=== PATIENT | male | born 1990 | race Caucasian/White ===

== ENCOUNTER 2017-12-23 18:34 | Emergency (ER) | payer OTHER ==
[2017-12-23] MEDS ORDERED: HYDROcodone/ACETAMIN 5-325 MG* 1 TAB PO ONE (19:33)
--- NOTE | 2017-12-23 19:44 | ED ---
Upper Extremity Pain - HPI Summary HPI Summary: Complains of shooting nail thru first phalanx of left second digit and residential into first phalanx of third digit with nail gun today.. Nail still present. Tetanus up-to-date, received 2013 - History of Current Complaint Chief Complaint: EDGeneral Stated Complaint: NAIL IN FINGER Time Seen by Provider: 12/23/17 19:13 Hx Obtained From: Patient Mechanism Of Injury: Penetrating Trauma Severity Initially: Moderate Severity Currently: Moderate Pain Location: Finger Aggravating Factor(s): Movement - Allergies/Home Medications Allergies/Adverse Reactions: Allergies Allergy/AdvReac Type Severity Reaction Status Date / Time Penicillins Allergy Rash Verified 12/23/17 18:41 PMH/Surg Hx/FS Hx/Imm Hx Previously Healthy: Yes Endocrine/Hematology History: Denies: Hx Anticoagulant Therapy, Hx Blood Disorders, Hx Diabetes - Immunization History Date of Tetanus Vaccine: 2013 Infectious Disease History: No Infectious Disease History: Denies: Traveled Outside the [place] in Last 30 Days - Social History Occupation: Employed Full-time Alcohol Use: Rare Substance Use Type: Reports: None Smoking Status (MU): Never Smoked Tobacco Review of Systems Constitutional: Negative Eyes: Negative ENT: Negative Cardiovascular: Negative Respiratory: Negative Gastrointestinal: Negative Genitourinary: Negative Positive: Other Skin: Negative Neurological: Negative Psychological: Normal All Other Systems Reviewed And Are Negative: Yes Physical Exam - Summary Physical Exam Summary: Three-inch nail extending through the proximal phalange of second digit of left hand, and appears to have penetrated proximal phalanx of third digit, but is currently no longer penetrating third digit. Admits to sensation distally in second and third digits of left hand. Flexion and extension appear intact. Cap refill present. Limited range of motion of second digit. Triage Information Reviewed: Yes Vital Signs On Initial Exam: Initial Vitals Temp Pulse Resp BP Pulse Ox 98.5 F 83 18 137/98 99 12/23/17 18:36 12/23/17 18:36 12/23/17 18:36 12/23/17 18:36 12/23/17 18:36 Vital Signs Reviewed: Yes Appearance: Positive: Well-Appearing Skin: Positive: Warm Head/Face: Positive: Normal Head/Face Inspection Eyes: Positive: Normal Neck: Positive: Supple Respiratory/Lung Sounds: Positive: Clear to Auscultation Cardiovascular: Positive: Normal Abdomen Description: Positive: Nontender Musculoskeletal: Positive: Normal Neurological: Positive: Normal Psychiatric: Positive: Normal AVPU Assessment: Alert - [place] Coma Scale Best Eye Response: 4 - Spontaneous Best Motor Response: 6 - Obeys Commands Best Verbal Response: 5 - Oriented Coma Scale Total: 15 Diagnostics - Vital Signs Vital Signs Temp Pulse Resp BP Pulse Ox 12/23/17 18:36 98.5 F 83 18 137/98 99 - Laboratory Lab Statement: Any lab studies that have been ordered have been reviewed, and results considered in the medical decision making process. - Radiology lwft 2nd finger Xray Interpretation: No Acute Changes Radiology Interpretation Completed By: Radiologist - no bony involvement left 3rd finger Xray Interpretation: No Acute Changes - no bony involvement Radiology Interpretation Completed By: Radiologist Course/Dx - Course Course Of Treatment: Complains of shooting nail thru first phalanx of left second digit and residential into first phalanx of third digit with nail gun today.. Nail still present.Three-inch nail extending through the proximal phalange of second digit of left hand, and appears to have penetrated proximal phalanx of third digit, but is currently no longer penetrating third digit. Admits to sensation distally in second and third digits of left hand. Flexion and extension appear intact. Cap refill present. Limited range of motion of second digit. Dr. Lynch orthopedics surgeon performed a digital block on patient index finger and removed nail. Patient will follow-up with Dr. Lynch Thursday of next week. Rx for Bactrim by mouth - Diagnoses Provider Diagnoses: Foreign body finger Discharge - Sign-Out/Discharge Documenting (check all that apply): Discharge/Admit/Transfer - Discharge Plan Condition: Stable Disposition: HOME Prescriptions: Sulfamethox/Trimethoprim DS* [Bactrim DS 800/160 TAB*] 1 tab PO BID 10 Days #20 tab Patient Education Materials: Soft Tissue Foreign Body (ED) Forms: *Work Release Referrals: No Primary Care Phys,NOPCP [Primary Care Provider] - Jose Martin Lynch MD [Medical Doctor] - Additional Instructions: Take antibiotics as directed. Move finger to keep it from getting stiff. Follow-up with orthopedics Dr. Lynch for appt on Friday 12/29. Return to the ED for any new or worsening symptoms - Billing Disposition and Condition Condition: STABLE Disposition: Home
--- NOTE | 2017-12-23 20:05 | RAD ---
Indication: Left index finger foreign body. 3 views of left index finger demonstrates the tip of the forearm body to be in the volar soft tissue at the level of the proximal phalanx. No definite fracture is noted. IMPRESSION: Nail appears to be through the volar soft tissues without fracture.
--- NOTE | 2017-12-23 20:06 | RAD ---
INDICATION: Foreign body through index finger. 3 views of left index finger demonstrates soft tissue through the volar aspect of the index finger. No bony involvement is definitively identified. IMPRESSION: Foreign body appears to be in the volar soft tissues of the index finger.
[2017-12-23] MEDS ORDERED: Bupivacaine 0.25% SDV* 30 ML INJ ONE (21:02)
[2017-12-23] MEDS ORDERED: Sulfamethox/Trimethoprim DS 800/160* TAB PO ONE (21:30)
[2017-12-23 21:44] VITALS: BP 118/72
--- NOTE | 2017-12-24 04:18 | CONS ---
CONSULTATION REPORT: DATE OF CONSULT: 12/23/17 - EMERGENCY DEPT. CHIEF COMPLAINT: Left index and middle fingers nail bed injuries with retained nail. HISTORY OF PRESENT ILLNESS: Kulwinder is 27. He is working in construction. Earlier today, they were building a deck, a nail gun shot a nail, a framing nail , through his palmar soft tissue of the index finger from radial to ulnar and into the middle finger. The nail has come out of the middle finger leaving the puncture wound; it is [id number] on the palmar aspect of the index finger. He does not feel a lot of numbness or tingling. It is appropriately stiff with a retained nail in place. PAST MEDICAL HISTORY: Negative. PAST SURGICAL HISTORY: Negative. MEDICATIONS: No home medications. ALLERGIES: PENICILLIN, which causes a rash. SOCIAL HISTORY: He is not a smoker. He is employed part time flexible clerk. He reports rare alcohol use. REVIEW OF SYSTEMS: Negative except for issues with the left index finger and middle finger. Otherwise, full review of systems was conducted and is negative. PHYSICAL EXAM: General: Awake and alert, very pleasant. Skin: There is a puncture wound in the middle finger. There is a thorough and thorough wound in the index finger. Musculoskeletal: The left index finger sits flexed to the PIP joint. It actively flexes to the DIP joint and extends. Light touch sensation on the distal aspect of the fingertip on both the radial and ulnar aspect is present as well as radial aspect of the middle finger, maybe a bit tingly on the ulnar aspect of the index finger, but he definitely feels it. The fingers are warm and well perfused. DIAGNOSTIC STUDIES/LAB DATA: X-rays were reviewed. The nail is seen. I do not appreciate any fracture. IMPRESSION: Retained nail in the left index finger. The tip of the nail did puncture into the middle finger. It does not appear as though the nerve is injured. I do not see any fractures. Certainly, we cannot fully rule out a digital nerve injury to the index finger. The tendons do appear to be intact. PLAN/RECOMMENDATIONS: I went ahead and removed the nail under digital block anesthesia. After I removed the nail, he had full flexion and extension in the finger. Neurological exam could not be obtained due to the finger being anesthetized. I told him there is a risk of infection. We irrigated out the puncture wound. It probably did have some communication with the flexor tendon sheath, so I suppose there is a small chance that he could develop a flexor tenosynovitis. I am going to send him out on prophylactic cephalexin. I will make sure his tetanus is updated. I will check him early next week to examine his neurological status and make sure there are no signs of any infection. PROCEDURE: Informed verbal consent was obtained and the left index finger and middle finger were cleansed with alcohol. A digital block was performed with 0.25% plain Marcaine. After waiting for 10 to 15 minutes for the finger to get completely numb, I went ahead and removed the nail uneventfully by pulling it back out of the index finger. The nail came out cleanly. There were no retained fragments. After I removed the nail, he can flex and extend the finger fully. We irrigated out the tract with an Angiocath using saline, Betadine solution. The finger was dressed. He tolerated this very well. [id number]/CPS #: [id number] MTDD
== END 2017-12-23 21:44 | disposition home or self-care (01) ==
LOC: ED 18:34
DX: S61.241A Puncture wound with foreign body of left index finger without damage to nail, initial encounter (principal); W29.4XXA Contact with nail gun, initial encounter; Y93.9 Activity, unspecified; Y92.9 Unspecified place or not applicable; Z88.0 Allergy status to penicillin
CPT/HCPCS: 73140; 99283; A9270-GY

== ENCOUNTER 2019-05-01 20:38 | Inpatient (IN) | payer MEDICAID, OTHER ==
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
[2019-05-01 21:18] LABS: Urine Appearance Clear; Urine Color Yellow; Urine Ketones Negative (Negative); Urine Protein Negative (Negative); Urine Urobilinogen Negative (Negative)
[2019-05-01 21:18] LABS: ABS Basophils 0.1 10^3/ul (0-0.2); ABS Eosinophils 0.1 10^3/ul (0-0.6); ABS Lymphocytes 2.5 10^3/ul (1.0-4.8); ABS Monocytes 0.7 10^3/ul (0-0.8); ABS Neutrophils 7.4 10^3/ul (1.5-7.7); Eosinophil % 0.6 %; Hematocrit 51 % (42-52); Hemoglobin 17.2 g/dL (14.0-18.0); Mean Corpuscular HGB Conc 34 g/dL (31-36); Mean Corpuscular Hemoglobin 30 pg (27-31); Mean Corpuscular Volume 88 fL (80-94); Nucleated Red Blood Cells % 0.1; Platelet Count 228 10^3/uL (150-450); Red Blood Count 5.77 10^6 /uL (4.18-5.48); Red Cell Distribution Width 14 % (10-15); White Blood Count 10.7 10^3/uL (3.5-10.8)
[2019-05-01 21:19] LABS: Urine Bilirubin Negative (Negative); Urine Blood Negative (Negative); Urine Glucose Negative (Negative); Urine Nitrite Negative (Negative)
[2019-05-01 21:21] LABS: Urine Bacteria Absent (Absent); Urine Red Blood Cell Absent (Absent); Urine Squamous Epithelial Cell Present (Absent); Urine White Blood Cell Absent (Absent)
[2019-05-01 21:31] LABS: Urine Benzodiazepine Screen None Detected (None Detect); Urine Opiates Screen None Detected (None Detect)
[2019-05-01 21:33] LABS: ALT 33 U/L (7-52); Albumin 4.5 g/dL (3.2-5.2); Albumin/Globulin Ratio 1.4 (1-3); Alkaline Phosphatase 73 U/L (34-104); BUN/Creatinine Ratio 9.8 (8-20); Blood Urea Nitrogen 10 mg/dL (6-24); CO2 Carbon Dioxide 21 mmol/L (22-32); Calcium 9.6 mg/dL (8.6-10.3); Chloride 109 mmol/L (101-111); EGFR African American 106.8 (>60); EGFR Non-African American 88.3 (>60); Globulin 3.2 g/dL (2-4); Glucose 89 mg/dL (70-100); Sodium 137 mmol/L (135-145); Total Protein 7.7 g/dL (6.4-8.9)
[2019-05-01 21:55] LABS: Acetaminophen < 15 mcg/mL; Alcohol < 10 mg/dL (<10); Salicylate < 2.50 mg/dL (<30)
[2019-05-01 22:11] LABS: TSH (Thyroid Stimulating Horm) 2.18 mcIU/mL (0.34-5.60)
[2019-05-01 22:49] LABS: AST 25 U/L (13-39); Anion Gap 7 mmol/L (2-11); Potassium 4.3 mmol/L (3.5-5.0)
[2019-05-02] MEDS ORDERED: diPHENhydraMINE PO* 50 MG ONE (01:44)
[2019-05-02] MEDS ORDERED: DIPHENHYDRAMINE 50 MG PO (02:31)
[2019-05-02] MEDS ORDERED: Acetaminophen TAB* 325 MG PO PRN (02:31)
[2019-05-02] MEDS ORDERED: Al Hydrox/Mg Hydrox/Simet LIQ* 30 ML UDC PO PRN (02:31)
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
[2019-05-02] MEDS: Vitamin THERAPEUTIC TAB PO SCH (11:36)
[2019-05-03] MEDS: Vitamin THERAPEUTIC TAB PO SCH (08:34)
--- NOTE | 2019-05-03 10:35 | PN ---
Subjective - Subjective Date of Service: 05/03/19 Service Type: 68140 Hosp care 35 min high complexity Subjective: CC: " I miss my children" Patient was seen and evaluated in the common room. He reported having decreased appetite and sleep. The patient did not report attending and participating in day groups. Per nursing no behavioral issues or overnight events reported. Patient is willing to take medications that will start tonight. Patient identifies how he feels sad and depressed because he is not allowed to be there to raise his children. He does speak with them over the phone. He described being close to his grandfather who taught him how to build things. Objective - General Observations Appearance: Disheveled Appears Stated Age: Yes Stature: WNL Posture: WNL Eye Contact: Average Behavior/Activity: Slowed - Interaction Observations Attitude Towards Examiner: Cooperative Stated Mood: Dysphoric Affect: Blunted Speech Pattern/Tone: Appropriate Thought Process: [place] Perception: WNL Thought Content: Self-Deprecatory Thought Process: Lethality: Passive Wish Hallucination Type: Denies Delusion Type: None - Cognitive Function Orientation: A&O x 4 Level of Consciousness: Awake - Medication Compliance Cooperative with Inpatient Medication Regimen: Yes - Group Participation Participates in Group Activities: No Assessment - Assessment Merits Inpatient Hospitalization: For Immediate Safety Clinical Impression: 28 year old male with a history of PTSD and Bipolar II came to the hospital by police and was admitted to the BSU at [facility] following expressing suicidal ideation. Plan - Plan Treatment Plan: Name: AFRICA BUCKLEY Birthdate: 1990 [id number] #Q15 minute observation. # The patient requires psychiatric inpatient admission at this time to assure safety, receive treatment and work toward stabilization. # EKG ordered for risk of QT prolongation of antipsychotic medication. # Obtain collateral information once release is signed. # Collaboration with Social Work # [place] ACT completed. # Effexor 150mg qhs for depression # Seroquel 200mg qhs for mood # Prazosin 1mg qhs for nightmares #Goals before discharge include: To eliminate/ reduce suicidal ideation Tentative Discharge: Pending psychiatric stabilization Sodium 137 mmol/L (135-145) 05/01/19 21:09 Potassium 4.3 mmol/L (3.5-5.0) 05/01/19 21:09 BUN 10 mg/dL (6-24) 05/01/19 21:09 Creatinine 1.02 mg/dL (0.67-1.17) 05/01/19 21:09 Calcium 9.6 mg/dL (8.6-10.3) 05/01/19 21:09 AST 25 U/L (13-39) 05/01/19 21:09 ALT 33 U/L (7-52) 05/01/19 21:09 Continued Medication Management: Continue Outpt Medication Medications: Current Medications Acetaminophen (Tylenol Tab*) 650 mg PO Q4H PRN PRN Reason: PAIN or TEMP > 101 F Al Hydrox/Mg Hydrox/Simethicone (Maalox Plus*) 30 ml PO Q4H PRN PRN Reason: INDIGESTION Diphenhydramine HCl (Benadryl Po*) 50 mg PO BEDTIME PRN PRN Reason: INSOMNIA Last Admin: 05/02/19 20:53 Dose: 50 mg Multivitamins (Theragran Tab*) 1 tab PO DAILY [facility] Last Admin: 05/03/19 08:34 Dose: Not Given Prazosin HCl (Minipress Cap*) 1 mg PO 2100 [facility] Quetiapine Fumarate (Seroquel Tab*) 200 mg PO BEDTIME [facility] Venlafaxine HCl (Effexor Xr Cap*) 150 mg PO 2100 [facility] - Discharge Plan Discharge Plan: Inpatient Hospitalization
[2019-05-03] MEDS: Famotidine TAB* 20 MG PO SCH (15:23)
--- NOTE | 2019-05-03 16:45 | CONS ---
CONSULTATION REPORT: DATE OF CONSULT: 05/03/19 REASON FOR CONSULT: Pain with eating. REQUESTING PROVIDER: Dr. Denney. HISTORY OF PRESENT ILLNESS: This is a 28-year-old male with a past medical history significant for depression, bipolar, PTSD, who was seen today for complaints of pain with eating, starting about a few months ago. The patient would get pain in the right upper quadrant and left lower quadrant every day after eating lunch or dinner. He describes the pain as up to an 8/10, throbbing pain, sometimes radiating to the right posterior flank. The pain was made worse with eating, nothing seemed to make it better. The pain would affect his appetite when it was present with regards to decreased appetite. Occasionally would report nausea after eating, which has progressively worsened over the past couple of months. He used to drink about 6-pack to a 2-L bottle of soda a day, though started cutting back about 5 months ago. He stated he is drinking more milk, water, and Douglas-Aid. PAST MEDICAL HISTORY: Includes depression, bipolar type 2, PTSD, suicide ideation, and blood clot in the brain following chickenpox as a child. PAST SURGICAL HISTORY: None. HOME MEDICATIONS: Include: 1. Quetiapine fumarate 200 mg p.o. daily. 2. Venlafaxine extended-release 225 mg p.o. daily. ALLERGIES: He has a drug allergy to PENICILLIN. FAMILY HISTORY: Includes grandmother who had a CVA and a triple bypass, uncle had a triple bypass and an [place]. Father has depression who has had a suicide attempt and ETOH abuse. SOCIAL HISTORY: Declines any tobacco, EtOH, or drug use. He lives in a hotel currently, works in construction. He is from his and has 3 children. REVIEW OF SYSTEMS: An 11-point system review was completed. It was positive for changes in poor appetite with pain. No fever. Occasional chest pain on the left lower intercostal area radiating to substernal, though nothing in to jaw, back, or arm. He states that pain comes with anxiety. Denies any coughing or shortness of breath. Nausea with eating and occasional vomiting. No problems with urination, states he has had in the past [id number] bright bloody bowel movements with straining. PHYSICAL EXAM: Vital Signs: 97.4 temp, 86 pulse, 16 resp, 99% oxygen on room air, and 121/82 blood pressure. Constitutional: This is a well-developed gentleman, seen sitting in the milieu, no acute distress noted. Eyes: Conjunctivae pink and moist. PERRLA. EOM intact. Lymphatics: No cervical lymphadenopathy noted. Cardiac: S1, S2. Heart rate regular. No murmurs, gallops, or rubs appreciated. No lower extremity edema. Respiratory: Lung sounds clear throughout bilaterally on room air. No accessory muscle use noted. Abdomen was distended and firm. Tender throughout right side and left lower quadrant. Hypoactive bowel sounds x4. Musculoskeletal: No clubbing or cyanosis noted. Able to move all extremities. Skin: No rashes or open areas appreciated. Neuro: No focal deficits. Moves all extremities. Sensation intact to light touch. Psych: Alert and oriented x3. No overt anxiety or depression localized. PERTINENT LABORATORY DATA: Red blood cell count on 05/01/19 was 5.77. No other pertinent data. ASSESSMENT: My impression is that this is a 28-year-old male with past medical history significant for bipolar, posttraumatic stress disorder, and depression who was admitted to the behavioral services unit on 04/21/19 for suicide ideation, and seen by myself on 05/03/19 for gastroesophageal reflux disease versus cholecystitis. PLAN: 1. Abdominal pain. I do not feel this is be due to infection due to lack of WBC and the prolonged nature of the course of illness. Abdomen did not yield any peritoneal pain. Perform gallbladder ultrasound to rule out cholelithiasis and start the patient on famotidine 20 mg daily. 2. Depression. Continue venlafaxine. 3. PTSD. Continue prazosin. 4. Bipolar. Continue quetiapine. 5. DVT prophylaxis. None needed. The patient is low risk. 6. Code status. Full code. Thank you for allowing us to participate in the plan of care for this patient. We will follow during the admission. [id number]/[facility] #: [id number] MARTIN
[2019-05-03] MEDS: QUEtiapine TAB* 100 MG PO SCH (20:47)
[2019-05-03] MEDS: Prazosin CAP* 1 MG PO SCH (20:47)
[2019-05-03] MEDS: Venlafaxine EXT RELEASE CAP* 75 MG PO SCH (20:47)
[2019-05-04 06:54] LABS: HDL Cholesterol 33.3 mg/dL
--- NOTE | 2019-05-04 11:35 | PN ---
Subjective - Subjective Date of Service: 05/04/19 Service Type: 39833 Hosp care 35 min high complexity Subjective: Nursing Report: Patient was visible on unit, no behavioral incidents. Slept overnight. He is attending group activities. CC: "Fine" Patient was seen and evaluated today. He reported improvement of sleep and mood. He reported having adequate appetite and sleep. The patient reports attending and participating in day groups. Per nursing no behavioral issues or overnight events reported. Patient reported that he is tolerating medications without side effects. Objective - General Observations Appearance: Disheveled Appears Stated Age: Yes Stature: WNL Posture: WNL Eye Contact: Average Behavior/Activity: WNL - Interaction Observations Attitude Towards Examiner: Cooperative Stated Mood: Dysphoric Affect: Blunted Speech Pattern/Tone: Clear Thought Process: Coherent Perception: WNL Thought Content: Self-Deprecatory Thought Process: Lethality: Passive Wish Hallucination Type: None Delusion Type: None - Cognitive Function Orientation: A&O x 4 Level of Consciousness: Awake - Medication Compliance Cooperative with Inpatient Medication Regimen: Yes - Group Participation Participates in Group Activities: Yes Assessment - Assessment Merits Inpatient Hospitalization: For Immediate Safety Clinical Impression: 28 year old male with a history of PTSD and Bipolar II came to the hospital by police and was admitted to the BSU at [facility] following expressing suicidal ideation. Plan - Plan Treatment Plan: Name: AFRICA BUCKLEY Birthdate: 1990 [id number] #Q30 minute observation with staff pass # The patient requires psychiatric inpatient admission at this time to assure safety, receive treatment and work toward stabilization. # EKG ordered for risk of QT prolongation of antipsychotic medication. # Obtain collateral information once release is signed. # Collaboration with Social Work # [place] ACT completed. # Effexor 150mg qhs for depression # Seroquel 200mg qhs for mood # Prazosin 1mg qhs for nightmares # Connect with follow up care services PTSD groups and [facility] services # Medical consult completed for abdominal pain and recommendations appreciated # Ultrasound abdomen completed - no significant findings with impression reading hepatosteatosis #Goals before discharge include: To eliminate/ reduce suicidal ideation Tentative Discharge: Pending psychiatric stabilization Sodium 137 mmol/L (135-145) 05/01/19 21:09 Potassium 4.3 mmol/L (3.5-5.0) 05/01/19 21:09 BUN 10 mg/dL (6-24) 05/01/19 21:09 Creatinine 1.02 mg/dL (0.67-1.17) 05/01/19 21:09 Calcium 9.6 mg/dL (8.6-10.3) 05/01/19 21:09 AST 25 U/L (13-39) 05/01/19 21:09 ALT 33 U/L (7-52) 05/01/19 21:09 Continued Medication Management: Continue Outpt Medication Medications: Current Medications Acetaminophen (Tylenol Tab*) 650 mg PO Q4H PRN PRN Reason: PAIN or TEMP > 101 F Al Hydrox/Mg Hydrox/Simethicone (Maalox Plus*) 30 ml PO Q4H PRN PRN Reason: INDIGESTION Diphenhydramine HCl (Benadryl Po*) 50 mg PO BEDTIME PRN PRN Reason: INSOMNIA Last Admin: 05/02/19 20:53 Dose: 50 mg Famotidine (Pepcid Tab*) 20 mg PO DAILY [facility] Last Admin: 05/03/19 15:23 Dose: 20 mg Multivitamins (Theragran Tab*) 1 tab PO DAILY [facility] Last Admin: 05/03/19 08:34 Dose: Not Given Prazosin HCl (Minipress Cap*) 1 mg PO 2100 [facility] Last Admin: 05/03/19 20:47 Dose: 1 mg Quetiapine Fumarate (Seroquel Tab*) 200 mg PO BEDTIME [facility] Last Admin: 05/03/19 20:47 Dose: 200 mg Venlafaxine HCl (Effexor Xr Cap*) 150 mg PO 2100 [facility] Last Admin: 05/03/19 20:47 Dose: 150 mg - Discharge Plan Discharge Plan: Inpatient Hospitalization
[2019-05-04] MEDS: Famotidine TAB* 20 MG PO SCH (12:25)
[2019-05-04] MEDS: Vitamin THERAPEUTIC TAB PO SCH (12:26)
--- NOTE | 2019-05-04 14:51 | PN ---
Hospitalist Progress Note Date of Service: 05/04/19 Consult yesterday for abdominal pain lasting months. GB US today shows hepatosteatosis, but no cholelithiasis. Would recommend continuing famotidine. If the patient does not have improvement after 2-3 weeks, he should follow up with his PCP to determine if further workup is warranted. Case was discussed with Dr. Denney. [facility] will sign off at this time. Thank you for this consultation.
[2019-05-04] MEDS: QUEtiapine TAB* 100 MG PO SCH (20:19)
[2019-05-04] MEDS: Venlafaxine EXT RELEASE CAP* 75 MG PO SCH (20:19)
[2019-05-04] MEDS: Prazosin CAP* 1 MG PO SCH (20:19)
[2019-05-05] MEDS: Vitamin THERAPEUTIC TAB PO SCH (12:14)
[2019-05-05] MEDS: Famotidine TAB* 20 MG PO SCH (12:14)
--- NOTE | 2019-05-05 12:15 | PN ---
Subjective - Subjective Date of Service: 05/05/19 Service Type: [id number] Hosp care 35 min high complexity Subjective: Nursing Report: Patient was visible on unit, no behavioral incidents. Slept overnight. CC: "Alright" Patient was seen and evaluated today. The patient reported sleeping better. He identified his mother and girlfriend as a source of support, however doesnt think they will come to visit him. He plans to stay at the motel until he can get his own apartment. He reported having adequate appetite and sleep. The patient reports attending some groups. Per nursing no behavioral issues or overnight events reported. Patient reported that he is tolerating medications without side effects. Objective - General Observations Appearance: Disheveled Appears Stated Age: Yes Stature: WNL Posture: WNL Eye Contact: Average Behavior/Activity: Slowed - Interaction Observations Attitude Towards Examiner: Cooperative Stated Mood: Dysphoric Affect: Blunted Speech Pattern/Tone: Quiet Volume Thought Process: [place] Perception: WNL Thought Content: Self-Deprecatory Thought Process: Lethality: Passive Wish Hallucination Type: None Delusion Type: None - Cognitive Function Orientation: A&O x 4 Level of Consciousness: Awake Cognition: WNL - Medication Compliance Cooperative with Inpatient Medication Regimen: Yes - Group Participation Participates in Group Activities: Partial Assessment - Assessment Merits Inpatient Hospitalization: For Immediate Safety Clinical Impression: 28 year old male with a history of PTSD and Bipolar II came to the hospital by police and was admitted to the BSU at [facility] following expressing suicidal ideation. Plan - Plan Treatment Plan: Name: AFRICA BUCKLEY Birthdate: 1990 [id number] #Q30 minute observation with staff pass with computer # The patient requires psychiatric inpatient admission at this time to assure safety, receive treatment and work toward stabilization. # EKG ordered for risk of QT prolongation of antipsychotic medication. # Obtain collateral information once release is signed. # Collaboration with Social Work # [place] ACT completed. # Effexor 150mg qhs for depression # Seroquel 200mg qhs for mood # Prazosin 1mg qhs for nightmares # Outpatient follow up at [facility] # Mothers contact information Sue [phone] # Patient unable to remember friends number # Support system include mother and girlfriend. #Goals before discharge include: To eliminate/ reduce suicidal ideation Tentative Discharge: Pending psychiatric stabilization Sodium 137 mmol/L (135-145) 05/01/19 21:09 Potassium 4.3 mmol/L (3.5-5.0) 05/01/19 21:09 BUN 10 mg/dL (6-24) 05/01/19 21:09 Creatinine 1.02 mg/dL (0.67-1.17) 05/01/19 21:09 Calcium 9.6 mg/dL (8.6-10.3) 05/01/19 21:09 AST 25 U/L (13-39) 05/01/19 21:09 ALT 33 U/L (7-52) 05/01/19 21:09 Continued Medication Management: Continue Outpt Medication Medications: Current Medications Acetaminophen (Tylenol Tab*) 650 mg PO Q4H PRN PRN Reason: PAIN or TEMP > 101 F Al Hydrox/Mg Hydrox/Simethicone (Maalox Plus*) 30 ml PO Q4H PRN PRN Reason: INDIGESTION Diphenhydramine HCl (Benadryl Po*) 50 mg PO BEDTIME PRN PRN Reason: INSOMNIA Last Admin: 05/02/19 20:53 Dose: 50 mg Famotidine (Pepcid Tab*) 20 mg PO DAILY [facility] Last Admin: 05/05/19 12:14 Dose: 20 mg Multivitamins (Theragran Tab*) 1 tab PO DAILY [facility] Last Admin: 05/05/19 12:14 Dose: Not Given Prazosin HCl (Minipress Cap*) 1 mg PO 2100 [facility] Last Admin: 05/04/19 20:19 Dose: 1 mg Quetiapine Fumarate (Seroquel Tab*) 200 mg PO BEDTIME [facility] Last Admin: 05/04/19 20:19 Dose: 200 mg Venlafaxine HCl (Effexor Xr Cap*) 150 mg PO 2100 [facility] Last Admin: 05/04/19 20:19 Dose: 150 mg - Discharge Plan Discharge Plan: Inpatient Hospitalization Outpatient Program: [facility]
[2019-05-05] MEDS: Prazosin CAP* 1 MG PO SCH (20:22)
[2019-05-05] MEDS: QUEtiapine TAB* 100 MG PO SCH (20:22)
[2019-05-05] MEDS: Venlafaxine EXT RELEASE CAP* 75 MG PO SCH (20:22)
[2019-05-06] MEDS: Famotidine TAB* 20 MG PO SCH (08:27)
[2019-05-06] MEDS: Vitamin THERAPEUTIC TAB PO SCH (10:07)
--- NOTE | 2019-05-06 10:29 | PN ---
Subjective - Subjective Date of Service: 05/06/19 Service Type: 59642 Hosp care 35 min high complexity Subjective: Nursing Report: Patient was visible on unit, no behavioral incidents. Slept overnight. He is attending some group activities. CC: "Alright" Patient was seen and evaluated in the common room. The patient reported he is unsure how much longer he is going to live in the hotel supported by DSS. because he plans to eventually move closer to home. He reported having adequate appetite and sleep. The patient reports attending in day groups. Per nursing patient was watching movie in comfort room last evening. Patient reported that he is tolerating medications without side effects. He is in agreement with taking a injection. Objective - General Observations Appearance: Disheveled Appears Stated Age: Yes Stature: WNL Posture: Slumped Eye Contact: Average - Interaction Observations Attitude Towards Examiner: Cooperative Stated Mood: Dysphoric Affect: Blunted Speech Pattern/Tone: Clear Thought Process: Coherent - Cognitive Function Orientation: A&O x 4 Level of Consciousness: Awake - Medication Compliance Cooperative with Inpatient Medication Regimen: Yes - Group Participation Participates in Group Activities: Partial Assessment - Assessment Merits Inpatient Hospitalization: For Immediate Safety Clinical Impression: 28 year old male with a history of PTSD and Bipolar II came to the hospital by police and was admitted to the BSU at [facility] following expressing suicidal ideation. Plan - Plan Treatment Plan: Name: AFRICA BUCKLEY Birthdate: 1990 [id number] #Q30 minute observation with staff pass with computer # The patient requires psychiatric inpatient admission at this time to assure safety, receive treatment and work toward stabilization. # EKG ordered for risk of QT prolongation of antipsychotic medication. # Obtain collateral information once release is signed. # Collaboration with Social Work # [email or web address] Safe ACT completed. # Effexor 150mg qhs for depression # Seroquel 50mg qhs for sleep #Abilify 5mg qhs # Prazosin 1mg qhs for nightmares # Outpatient follow up at [facility] # Mothers contact information Sue [phone] who suggested he live at a structured living program. She denied that he currently has access to firearms. # Long acting injection of Aristada 662mg plus Aristada Initio planed for Thursday after tolerance is established # [facility] Sheriff confirmed firearms have been confiscated # Safety plan discussed with patient # [place] housing and services # Support system include mother and girlfriend. #Goals before discharge include: To eliminate/ reduce suicidal ideation Tentative Discharge: Pending psychiatric stabilization Sodium 137 mmol/L (135-145) 05/01/19 21:09 Potassium 4.3 mmol/L (3.5-5.0) 05/01/19 21:09 BUN 10 mg/dL (6-24) 05/01/19 21:09 Creatinine 1.02 mg/dL (0.67-1.17) 05/01/19 21:09 Calcium 9.6 mg/dL (8.6-10.3) 05/01/19 21:09 AST 25 U/L (13-39) 05/01/19 21:09 ALT 33 U/L (7-52) 05/01/19 21:09 Continued Medication Management: Continue Outpt Medication Medications: Current Medications Acetaminophen (Tylenol Tab*) 650 mg PO Q4H PRN PRN Reason: PAIN or TEMP > 101 F Al Hydrox/Mg Hydrox/Simethicone (Maalox Plus*) 30 ml PO Q4H PRN PRN Reason: INDIGESTION Diphenhydramine HCl (Benadryl Po*) 50 mg PO BEDTIME PRN PRN Reason: INSOMNIA Last Admin: 05/02/19 20:53 Dose: 50 mg Famotidine (Pepcid Tab*) 20 mg PO DAILY [facility] Last Admin: 05/06/19 08:27 Dose: 20 mg Multivitamins (Theragran Tab*) 1 tab PO DAILY [facility] Last Admin: 05/06/19 10:07 Dose: Not Given Prazosin HCl (Minipress Cap*) 1 mg PO 2100 [facility] Last Admin: 05/05/19 20:22 Dose: 1 mg Quetiapine Fumarate (Seroquel Tab*) 200 mg PO BEDTIME [facility] Last Admin: 05/05/19 20:22 Dose: 200 mg Venlafaxine HCl (Effexor Xr Cap*) 150 mg PO 2100 [facility] Last Admin: 05/05/19 20:22 Dose: 150 mg - Discharge Plan Discharge Plan: Inpatient Hospitalization
[2019-05-06] MEDS: ARIPiprazole TAB* 5 MG PO SCH (20:33)
[2019-05-06] MEDS: Venlafaxine EXT RELEASE CAP* 75 MG PO SCH (20:33)
[2019-05-06] MEDS: QUEtiapine TAB* 25 MG PO SCH (20:34)
[2019-05-06] MEDS: Prazosin CAP* 1 MG PO SCH (20:34)
[2019-05-07] MEDS: Famotidine TAB* 20 MG PO SCH (15:41)
[2019-05-07] MEDS: Vitamin THERAPEUTIC TAB PO SCH (15:41)
[2019-05-07] MEDS: QUEtiapine TAB* 25 MG PO SCH (21:39)
[2019-05-07] MEDS: ARIPiprazole TAB* 5 MG PO SCH (21:40)
[2019-05-07] MEDS: Venlafaxine EXT RELEASE CAP* 75 MG PO SCH (21:40)
[2019-05-07] MEDS: Prazosin CAP* 1 MG PO SCH (21:41)
[2019-05-08] MEDS: Famotidine TAB* 20 MG PO SCH (12:24)
[2019-05-08] MEDS: Vitamin THERAPEUTIC TAB PO SCH (12:24)
[2019-05-08] MEDS: ARIPiprazole TAB* 5 MG PO SCH (20:43)
[2019-05-08] MEDS: QUEtiapine TAB* 25 MG PO SCH (20:43)
[2019-05-08] MEDS: Prazosin CAP* 1 MG PO SCH (20:45)
[2019-05-08] MEDS: Venlafaxine EXT RELEASE CAP* 75 MG PO SCH (20:45)
[2019-05-09] MEDS ORDERED: ARIPiprazole TAB* 15 MG PO ONE (08:45)
[2019-05-09] MEDS: Famotidine TAB* 20 MG PO SCH (08:45)
[2019-05-09] MEDS: Vitamin THERAPEUTIC TAB PO SCH (08:45)
[2019-05-09] MEDS ORDERED: Mirtazapine TAB* 15 MG PO PRN (10:13)
--- NOTE | 2019-05-09 16:16 | PN ---
Subjective - Subjective Date of Service: 05/09/19 Service Type: 72713 Hosp care 35 min high complexity Subjective: Patient reported feeling ready to be discharged tomorrow. He received the injection without complications. Objective - General Observations Appearance: Disheveled Stature: WNL Posture: WNL Eye Contact: Average Behavior/Activity: WNL - Interaction Observations Attitude Towards Examiner: Cooperative Stated Mood: Euthymic Affect: Blunted Speech Pattern/Tone: Clear Thought Process: Coherent Perception: WNL Thought Content: WNL Hallucination Type: None Delusion Type: None - Cognitive Function Orientation: A&O x 4 Level of Consciousness: Awake - Medication Compliance Cooperative with Inpatient Medication Regimen: Yes - Group Participation Participates in Group Activities: Partial Assessment - Assessment Merits Inpatient Hospitalization: For Immediate Safety Clinical Impression: 28 year old male with a history of PTSD and Bipolar II came to the hospital by police and was admitted to the BSU at [facility] following expressing suicidal ideation. Plan - Plan Treatment Plan: Name: AFRICA BUCKLEY Birthdate: 1990 [id number] #Q30 minute observation with staff pass with computer # The patient requires psychiatric inpatient admission at this time to assure safety, receive treatment and work toward stabilization. # EKG ordered for risk of QT prolongation of antipsychotic medication. # Obtain collateral information once release is signed. # Collaboration with Social Work # [place] ACT completed. # Effexor 150mg qhs for depression # Start remeron 7.5mg daily for sleep # Prazosin 1mg qhs for nightmares # Outpatient follow up at [facility] # Mothers contact information Sue [phone] who provided collateral. She denied that he currently has access to firearms. # Long acting injection of Aristada 662mg plus Aristada Initio received today without complications # [facility] Sheriff confirmed firearms have been confiscated # Safety plan discussed with patient # Support system include mother and girlfriend. #Goals before discharge include: To eliminate/ reduce suicidal ideation Tentative Discharge: Tomorrow Sodium 137 mmol/L (135-145) 05/01/19 21:09 Potassium 4.3 mmol/L (3.5-5.0) 05/01/19 21:09 BUN 10 mg/dL (6-24) 05/01/19 21:09 Creatinine 1.02 mg/dL (0.67-1.17) 05/01/19 21:09 Calcium 9.6 mg/dL (8.6-10.3) 05/01/19 21:09 AST 25 U/L (13-39) 05/01/19 21:09 ALT 33 U/L (7-52) 05/01/19 21:09 Continued Medication Management: Continue Outpt Medication Medications: Current Medications Acetaminophen (Tylenol Tab*) 650 mg PO Q4H PRN PRN Reason: PAIN or TEMP > 101 F Al Hydrox/Mg Hydrox/Simethicone (Maalox Plus*) 30 ml PO Q4H PRN PRN Reason: INDIGESTION Diphenhydramine HCl (Benadryl Po*) 50 mg PO BEDTIME PRN PRN Reason: INSOMNIA Last Admin: 05/02/19 20:53 Dose: 50 mg Famotidine (Pepcid Tab*) 20 mg PO DAILY [facility] Last Admin: 05/09/19 08:45 Dose: 20 mg Mirtazapine (Remeron Tab*) 7.5 mg PO BEDTIME PRN PRN Reason: SLEEP Multivitamins (Theragran Tab*) 1 tab PO DAILY [facility] Last Admin: 05/09/19 08:45 Dose: Not Given Prazosin HCl (Minipress Cap*) 1 mg PO 2100 [facility] Last Admin: 05/08/19 20:45 Dose: 1 mg Venlafaxine HCl (Effexor Xr Cap*) 150 mg PO 2100 [facility] Last Admin: 05/08/19 20:45 Dose: 150 mg - Discharge Plan Discharge Plan: Inpatient Hospitalization
[2019-05-09] MEDS: Prazosin CAP* 1 MG PO SCH (20:08)
[2019-05-09] MEDS: Venlafaxine EXT RELEASE CAP* 75 MG PO SCH (20:08)
[2019-05-10] MEDS: Famotidine TAB* 20 MG PO SCH (07:34)
[2019-05-10] MEDS: Vitamin THERAPEUTIC TAB PO SCH (07:36)
--- NOTE | 2019-05-10 08:44 | DS ---
Subjective - Subjective Service Types: 110[address] [facility] Day Mgmt complex over 30 min Discharge Date: 05/10/19 Subjective: CC: " I am better" Patient looks forward to seeing his grandparents and going fishing. The patient was seen and evaluated before discharge today. The patient reported having adequate appetite and fair sleep. The patient reported attending some groups. Per nursing no behavioral issues or overnight events reported. Patient reported tolerating medications without side effects. Justification for admission: Immediate Safety. CC " I want to end my life" The patient was brought to [facility] by police after he called 911 expressing suicidal ideation. He reported having bad thoughts and became upset when asked about those bad thoughts. He reported being mad a friend for taking away his AR-15 rifle and stealing his belongings. Patient reported that he stopped taking his medications about 2 weeks ago because he could not get to a pharmacy due to his car being inoperable. 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 He reported feeling nausea, and vomiting and brain shocks when he stopped taking the medication. During that time he was not sleeping for 3 days and was talking a lot. Patient has access to firearms. Patients stressors include not being able to see his children due to a protection order from his who is now from. He reported feeling sad because he is unable to see his children. He describes limited social and family support and identified his grandparents to be a source of support for him. MDD Reported feeling depressed and feeling empty inside with feelings of hopelessness , and worthlessness. Reported diminished appetite and sleep. Reported overwhelming feelings of guilt and decreased concentration. Bipolar Denied symptoms of maria elena such as having many ideas at once. Denied increased talkativeness where no one can interrupt. Denied feeling irritable most of the time while having an persistent abundance of energy most of the day without the use of energy drinks, stimulants, or recreational drug use. Denied an increase in intensity in goal directed activities. Denied having the decreased need to sleep for days , having prolonged elevated mood , or feeling on top of the world. Denied impulsive risky sexual encounters. Denied spending money recklessly , going on spending sprees wiping out savings. Denied impulsively traveling out of town or country, having super escobar, and unrealistic wealth or fame. Anxiety Denied having symptoms of anxiety such as having times where heart feels that it is beating out of chest , sweaty palms, or shallow breathing. Denied having uncomfortable or intrusive thoughts. Denied feeling restless, high strung, or worrying too much most of the time. Psychosis Does not endorse hearing things that other people do not hear or seeing things other people do not see. Denied feeling that TV is making references. Denied feeling that people are spying , following , or reading their thoughts. Phobias: Patient denied having excessive fear of a particular thing or situation. Eating disorders: Patient denied having excessive eating habits or feelings of guilt after eating. Denied repeated episodes of self induced vomiting after eating. PTSD Reported flashbacks, nightmares and avoidance of a prior traumatic events experienced during deployment in [place] and [place] . PAST PSYCHIATRIC HISTORY: Prior Diagnosis : Bipolar I disorder, PTSD History of past Psychiatric Hospitalizations: 1 prior psychiatric admission at [facility] and sent to [facility] for 1 week. History of past suicide/homicide attempts : 1 past suicide attempt by overdosing on pills Outpatient follow-up: None at this time Medications: Past trials of medications include effexor 225mg qhs, seroquel 200mg qhs. Guardianship: None. FAMILY HISTORY: - Suicide: Father made a suicide attempt - Mental illness: Father depression - Substance abuse: Father alcohol abuse SUBSTANCE ABUSE HISTORY: Denied using alcohol, tobacco, heroin cocaine or other illicit substances. Denied abusing pills for recreational use. Denied past Substance abuse treatment. SOCIAL HISTORY: - Denied a history of childhood physical and or sexual abuse Born in [facility] and raised by both parents. - Education: Completed high school No history of special education. - Living situation: Currently lives in [facility] in [place] found by DSS - Employment history: Works odd jobs in construction currently unemployed - Relationship: and has 3 children. - Legal history: Has been to senior living multiple times for violating a protection order from his - service history: Served in the [employer] unit and served 3 tours overseas where he witness and suicide. PAST MEDICAL HISTORY: Denied heart disease, diabetes, cancer and/ or other medical conditions. - Allergies: Denied drug or other allergies. Physical Exam: Please see ED note Mental Status Exam on Admission APPEARANCE : 28 year old male who appears stated age. Patient appears to have poor hygiene and grooming. BEHAVIOR: Uncooperative EYE CONTACT: Poor PSYCHOMOTOR ACTIVITY: No psychomotor agitation or retardation. MOVEMENTS: No abnormal movements observed. SPEECH : Normal rate, rhythm, volume and tone. MOOD : "Mad " AFFECT : Type irritable Range is restricted Mood Incongruent THOUGHT PROCESS: Poverty of content THOUGHT CONTENT: Paranoid delusions PERCEPTION: No current auditory or visual hallucinations. SUICIDALITY Current suicidal ideation HOMICIDALITY Denied homicidal ideation, intent or plan. Insight/judgment: Poor insight and judgment ORIENTATION: Oriented to self, location, and time. Diagnosis on Admission: Bipolar II disorder current depressive episode. PTSD. Diagnosis on Discharge: Bipolar II disorder with recent depressive episode . PTSD. Condition at the time of discharge: At the time of discharge patient showed improvement of sleep and appetite. The patient was not a danger to self or others. The patient denied suicidal ideation, intent or plan. The patient denied homicidal targets, ideation, intent or plan. This patient participated in psychosocial rehabilitation and gained some insight into problems. The patient gained insight into mental illness, triggers, and treatment. The patient took medication as prescribed. The patient denied side effects of medication and objective signs of side effects were not evident. Therapy Resources were offered to the patient. Patient was given a supply of prescriptions at the time of discharge. The patient plans to attend follow up care with the follow up arrangements that were discussed and put in place. Patient was asked to keep appointments as scheduled, take medication as prescribed, have routine follow up care with their primary care physician and refrain from any use of alcohol or drugs. Objective - General Observations Appearance: Disheveled Appears Stated Age: Yes Stature: WNL Posture: WNL Eye Contact: Average Behavior/Activity: WNL - Interaction Observations Attitude Towards Examiner: Cooperative Stated Mood: Euthymic Speech Pattern/Tone: Clear Thought Process: Coherent Perception: WNL Thought Content: WNL Hallucination Type: None Delusion Type: None - Cognitive Function Orientation: A&O x 4 Level of Consciousness: Awake - Medication Compliance Cooperative with Inpatient Medication Regimen: Yes - Group Participation Participates in Group Activities: Yes Treatment Course & Assessment Clinical Course & Impression: Hospital course part A: 28 year old male with a history of PTSD and Bipolar II came to the hospital by police and was admitted to the BSU at [facility] following expressing suicidal ideation. Hospital course part B: Labs ordered included CBC, CMP, UDS, TSH, HBA1c, TSH, Toxicology screen, Urine analysis, and lipid profile. Labs were reviewed and did not require the need for further evaluation. Vital signs were monitored during the course of admission. EKG ordered for risk of QT prolongation of antipsychotic medication and found to be within normal limits. The patient was admitted to the adult behavioral unit and placed on 15 minute check for safety. At a later time the patient was on Q30 minute observation and staff pass privileges. With those limits being extended, patient was safe on all checks and there were no occurrence of behavioral incidents. The patient did well on the unit and went to groups. Interacted with peers had adequate sleep and regular appetite. Tolerated medication changes without side effects. Group therapy and services were offered. The risks, benefits, and alternative treatment options were discussed as well as of the risks of refusing treatment. Treatment associated risks discussed. After this discussion made an acknowledgement of this understanding. Follow up care appointments were put in place. The importance of monitoring for metabolic changes was discussed and acknowledgement of this understanding was made. The patient was informed not to abruptly stop or start new medications before consulting with a medical professional. Improvements in patient from the time of admission include: Improved affect, sleep and decrease in anxiety. The patient expressed readiness for discharge home. The patient presents with a broader range of affect, and the absence of depressed mood, delusions, perceptual disturbance. The patient denied suicidal and or homicidal ideation intent or plan. Overall, the patient responded well to inpatient treatment as evidenced by their report of strengthening of coping mechanisms, reduced distress, and more positive outlook on circumstances. Of note there was an improvement of recognizing how emotional state can effect mood and behavior. Safety precautions were put in place which included involving the patient and their family to closely monitor for changes in mental state. In addition, implementing follow up care, screening for the need to remove/securing firearms , weapons and stockpile of medications. Patient/ family instructed to immediately call 911 and/ or go to nearest emergency room should any safety concerns arise. AIMS was performed and insignificant for involuntary movement disorders. The patient was advised of the 24 hour / 7 days a week availability of the emergency room and to call 911 in the event of an emergency such as being suicidal and/ or homicidal. The patient was informed of the contact information for [facility], Suicide Prevention and Crisis Services, National Suicide Prevention Lifeline, [facility], Alcoholics Anonymous, and [facility]. Medications started included Effexor 150mg qhs for depression, Seroquel 200mg qhs for mood and decreased to 50mg qhs then increased [id number] qhs , Prazosin 1mg qhs for nightmares. Patient was started on remeron and did not find it to help with sleep this was discontinued and seroquel was restarted at 100mg qhs for sleep. Patient was informed of risks of taking two anti-psychotics and plans to eventually taper down seroquel in outpatient setting. Long acting injection of Aristada 662mg plus Aristada Initio received on without complications next injection due 06/06/19. Patient plans to follow up with [facility] assistance in [facility]. Family was contacted before discharge. The family confirmed that the patient gets better with treatment and suggested a structured outpatient program, no partial hospitalization was attempted to be located and was not available. At this time both the patient is eager for discharge and are in agreement with the discharge plan set forth by the treatment team and can safely receive care in the less restrictive outpatient setting. They were advised on how the days following discharge can be a vulnerable period and to look out for warning signs associated with decompensation and progression of mental illness. They were notified of the resources available in the event these situations arise and confirmed that the patient has no access to firearms or stockpiles of medications. [facility] confirmed firearms have been confiscated. Patient was provided with 2 week supply at [facility]. Prior authorization was approved. Patient plans to contact crisis hotline or call 911 in the event of a crisis. Patient was not assaultive or a behavioral problem during the course of admission. The patient showed improvement of hygiene and was able to carry out activities of daily living. Patient will be discharged to live at his hotel room. He plans to seek service connection and get his own apartment. Follow up appointment at [facility] on 05/11/19 at 830am Patient informed of follow up appointment times. See more details for follow up care in the discharge plan. Medicine team was contacted for abdominal pain. Ultrasound gallbladder completed - no significant findings with impression reading hepatosteatosis Risk factors were mitigated by establishing the patients baseline with speaking with his family. [place] ACT completed. Contacted [facility] to confirm firearms have been confiscated. Implementing precautionary safety measures by confirming no stockpiles of medications and no access to firearms , providing mental health treatment, stabilization of depressive features, arrangement of outpatient continuation of care, as well as provided a supportive care environment and therapy resources during the course of hospitalization. Provided Trauma focused therapy. Relationship stressors addressed. Safety plan was reviewed and discussed with the patient. Tailored treatment plan to provide the best chance for medication compliance. Treatment and therapy for PTSD and medication treatment for nightmares Risk factors: , lives alone, history of mental illness. Prior history of a suicide attempt. History of PTSD and service, Family history of suicide, Protective factors: Currently no suicidal ideation, intent or plan. Has children. Has social/ family support system. . Currently no feelings of hopelessness, not in an occupation of social isolation, doesnt have multiple medical conditions, doesnt have access to firearms. Doesnt have command hallucinations and or psychotic features at this time. No current substance abuse. No current alcohol abuse. Not an anniversary of a loss of a loved one. Currently future orientated. Patient engaged in treatment and compliant with medication. Sodium 137 mmol/L (135-145) 05/01/19 21:09 Potassium 4.3 mmol/L (3.5-5.0) 05/01/19 21:09 BUN 10 mg/dL (6-24) 05/01/19 21:09 Creatinine 1.02 mg/dL (0.67-1.17) 05/01/19 21:09 Hemoglobin A1c 5.3 % (4.0-5.6) 05/04/19 06:15 Calcium 9.6 mg/dL (8.6-10.3) 05/01/19 21:09 AST 25 U/L (13-39) 05/01/19 21:09 ALT 33 U/L (7-52) 05/01/19 21:09 Triglycerides 260 mg/dL 05/04/19 06:15 Cholesterol 152 mg/dL 05/04/19 06:15 LDL Cholesterol 67 mg/dL 05/04/19 06:15 Merits Inpatient Hospitalization: No Clear for Discharge: Adequate Clinical Respons Discharge Planning - Discharge Planning Discharge Plan: Outpatient Follow Up Outpatient Program: [facility] Recommendations for Continuing Care: Medication Management Medications: Current Medications Acetaminophen (Tylenol Tab*) 650 mg PO Q4H PRN PRN Reason: PAIN or TEMP > 101 F Al Hydrox/Mg Hydrox/Simethicone (Maalox Plus*) 30 ml PO Q4H PRN PRN Reason: INDIGESTION Diphenhydramine HCl (Benadryl Po*) 50 mg PO BEDTIME PRN PRN Reason: INSOMNIA Last Admin: 05/02/19 20:53 Dose: 50 mg Famotidine (Pepcid Tab*) 20 mg PO DAILY [facility] Last Admin: 05/10/19 07:34 Dose: 20 mg Multivitamins (Theragran Tab*) 1 tab PO DAILY [facility] Last Admin: 05/10/19 07:36 Dose: Not Given Prazosin HCl (Minipress Cap*) 1 mg PO 2100 [facility] Last Admin: 05/09/19 20:08 Dose: 1 mg Quetiapine Fumarate (Seroquel Tab*) 100 mg PO BEDTIME GILA Venlafaxine HCl (Effexor Xr Cap*) 150 mg PO 2100 [facility] Last Admin: 05/09/19 20:08 Dose: 150 mg Discharge Planning: Prescriptions provided for discharge [x] Yes [] No Follow up care details as per social work arrangements. Patient response to discharge plan: [x] eager for discharge [] agreeable with discharge plan [] ambivalent about discharge [] disagrees with discharge today
[2019-05-10 09:49] VITALS: BP 137/87
[2019-05-10] MEDS ORDERED: QUEtiapine TAB* 100 MG PO SCH (21:00)
== END 2019-05-10 14:00 | disposition home or self-care (01) | DRG 753 ==
LOC: ED 20:38 → BSU 05-02 00:22
PROVIDERS: ADMIT Psychiatry & Neurology Psychiatry; ATTEND Psychiatry & Neurology Psychiatry
DX: F31.30 Bipolar disorder, current episode depressed, mild or moderate severity, unspecified (principal); R45.851 Suicidal ideations; K76.0 Fatty (change of) liver, not elsewhere classified; R10.11 Right upper quadrant pain; F43.10 Post-traumatic stress disorder, unspecified; R10.32 Left lower quadrant pain; Z79.899 Other long term (current) drug therapy; Z88.0 Allergy status to penicillin; Z81.8 Family history of other mental and behavioral disorders; Z82.3 Family history of stroke; Z81.1 Family history of alcohol abuse and dependence; Z82.49 Family history of ischemic heart disease and other diseases of the circulatory system
CPT/HCPCS: 36415; 76705; 80053; 80061; 80307; 80320; 80329; 81003; 83036; 84443; 85025; 93005; 99222; 99233; 99238; 99284; A9270-GY; G0480